=== PATIENT | male | born 1995 | race Caucasian/White ===

== ENCOUNTER 2018-07-29 10:01 | Day surgery (SDC) | payer BC ==
[2018-07-29] MEDS ORDERED: fentaNYL PF VIAL 100 MCG/2 ML VIAL IV PRN ×2 (10:30)
[2018-07-29] MEDS ORDERED: MIDAZOLAM HCL/PF 2 MG/2 ML VIAL. IV PRN (10:30)
[2018-07-29] MEDS ORDERED: LIDOCAINE 1% PF 2 ML VIAL. ID PRN (10:30)
[2018-07-29] MEDS ORDERED: IV RINGERS,LACTATED 1000ML 1,000 ML IV SCH (10:30)
[2018-07-29] MEDS ORDERED: SCOPOLAMINE 1.5MG PATCH. TD ONE (10:30)
[2018-07-29] MEDS ORDERED: BUPIVAC MPF-EPI 0.5%-1:200000 30 ML VIAL. ONE (10:38)
[2018-07-29] MEDS ORDERED: fentaNYL PF VIAL 100 MCG/2 ML VIAL ONE (10:52)
[2018-07-29] MEDS ORDERED: SUCCINYLCHOLINE 200 MG/10 ML VIAL. ONE (10:52)
[2018-07-29] MEDS ORDERED: PROPOFOL 20 ML IV ONE ×2 (10:52→11:37)
[2018-07-29] MEDS ORDERED: FAMOTIDINE 20 MG/2 ML VIAL ONE (10:52)
[2018-07-29] MEDS ORDERED: ONDANSETRON PF 4 MG/2 ML VIAL. ONE (10:52)
[2018-07-29] MEDS ORDERED: MIDAZOLAM HCL/PF 2 MG/2 ML VIAL. ONE (10:52)
[2018-07-29] MEDS ORDERED: DEXAMETHASONE SOD PHOS 20 MG/5 ML VIAL. ONE (10:52)
[2018-07-29] MEDS ORDERED: diphenhydrAMINE 50 MG/ML VIAL ONE (11:24)
[2018-07-29] MEDS ORDERED: SEVOFLURANE 31 TO 60 MINUTES. IH ONE (12:11)
--- NOTE | 2018-07-29 12:13 | PDOC4 ---
Operative Note Operative Note Date: 07/29/2018 Preoperative diagnosis: Pilonidal cyst Postoperative diagnosis: Same Procedure: Pilonidal cystectomy Surgeon: Gene Specimen: Pilonidal cyst Dictation: Patient is 23-year-old male is had multiple episodes of infections of pilonidal cyst. Procedure of cystectomy was explained to the patient detail was benefits were also discussed including bleeding infection and wound complications. Patient seemed understanding gave both verbal and written consent had procedure performed. Patient was taken to the operating room placed in supine position general anesthesia was initiated once patient was asleep and intubated was then repositioned in the prone positioning and his buttocks was prepped and draped usual sterile fashion using ChloraPrep. Area around the pilonidal cyst was injected with quarter percent Marcaine with epinephrine and elliptical incision was made with 15 blade scalpel was carried down through the subcutaneous tissues to the fascia using left cautery. The cyst was completely excised and sent for pathology. Wound was closed in 2 layers a deep layer running 0 Vicryl and the skin was reapproximated with 2-0 nylon horizontal mattress sutures. Wound was dressed with 4 x 4's Medipore tape. Patient was repositioned in supine position waken next made in the operating room taken recovery in stable condition all sponge instrument needle counts listed as correct estimate blood loss 20 mL. PADMINI BAUMAN MD Jul 29, 2018 12:13
--- NOTE | 2018-07-29 12:15 | DISCH ---
DISCHARGE INSTRUCTIONS Condition on Discharge Condition on Discharge: Stable Activity After Discharge Activity Instructions for Disc: Avoid exertion Other activity instructions: May shower in 24 hours Diet after Discharge Diet after Discharge: Regular Contacting the DRYeyo after DC Call your doctor for: If your condition worsens Follow-Up Follow up with: Dr. Bauman in 2 weeks PADMINI BAUMAN MD Jul 29, 2018 12:14
[2018-07-29] MEDS ORDERED: OXYC-323 PO (12:28)
[2018-07-29] MEDS ORDERED: oxyCODONE/APAP 5/325 1 TAB TABLET PO ONE ×2 (12:45)
[2018-07-29 13:39] VITALS: BP 142/78
--- NOTE | 2018-08-02 15:07 | PATHOLOGY ---
[facility] Accession Number: [id number] . 01 Material submitted: . PILONDIAL CYST . 01 Clinical history: . Pilonidal cyst . 02 Diagnosis: Skin and subcutaneous tissue, pilonidal cystectomy: - Pilonidal abscess/sinus tract. . (JPM:vjm;08/02/2018) AGA/08/02/2018 . 02 Electronically signed: . Dexter Ma MD, Pathologist NPI- [id number] . 01 Gross description: . The specimen is received in formalin, labeled "Hussein Green, pilonidal cyst". Received is an ellipse of skin with attached underlying fibroadipose tissue measuring 5.9 x 3.0 x 2.7 cm in greatest mentions. The epidermal surface displays a well-circumscribed, raised and pale brothers lesion measuring 1.4 x 1.0 x 0.5 cm. Sectioning reveals a linear sinus tract measuring 3.2 cm in length by 0.4 cm in diameter with a slight amount of hair present. The specimen is submitted representatively in cassette A1. (CAA; 07/30/2018) QAC/QAC . 02 Pathologist provided ICD-10: L05.01 . 02 CPT . 74022 Specimen Comment: A courtesy copy of this report has been sent to Specimen Comment: [phone], . Specimen Comment: Report sent to / DR JOEL Specimen Comment: A duplicate report has been generated due to demographic updates. Performed at: [address], [place], [place] [id number] MD Sajan Phillips MD Phone: [phone] Performed at: 02 [facility] [address] [place], [place] [id number] MD Dexter Ma MD Phone: [phone]
== END 2018-07-29 13:39 | disposition home or self-care (01) ==
LOC: SURG 10:01
PROVIDERS: ATTEND Surgery
DX: L05.01 Pilonidal cyst with abscess (principal); Z98.890 Other specified postprocedural states; Z79.2 Long term (current) use of antibiotics; Z79.899 Other long term (current) drug therapy
CPT/HCPCS: 11771; A7015; J0330; J0690; J1100; J1200; J2250; J2405; J2704; J3010; J3490; J7120; 88304; A4461